=== PATIENT | male | born 1965 ===

== ENCOUNTER 2023-05-03 05:23 | Day surgery (SDC) | payer OTHER ==
[2023-05-03] MEDS ORDERED: OXYC1TAB9 PO (09:03)
== END 2023-05-03 13:25 | disposition home or self-care (01) ==
LOC: CIR.AMB 05:23
PROVIDERS: ATTEND Surgery
DX: K64.2 Third degree hemorrhoids (principal); K64.4 Residual hemorrhoidal skin tags; K64.8 Other hemorrhoids; K62.5 Hemorrhage of anus and rectum; K62.89 Other specified diseases of anus and rectum; K57.30 Diverticulosis of large intestine without perforation or abscess without bleeding; I10 Essential (primary) hypertension; Z20.822 Contact with and (suspected) exposure to COVID-19